=== PATIENT | female | born 1970 | race Caucasian/White ===

== ENCOUNTER 2024-10-10 14:54 | Inpatient (IN) | payer MEDICARE, MEDICAID ==
[~2024-10-10] VITALS: Ht 160 cm; Wt 125.0 kg
[2024-10-10 15:51] LABS: PLATELET COUNT, AUTOMATED 360 10^3/uL (150-450)
[2024-10-10 16:19] LABS: AMPHETAMINES LEVEL URINE NEGATIVE (NEGATIVE)
[2024-10-10 16:20] LABS: BARBITURATES URINE NEGATIVE (NEGATIVE); BENZODIAZEPINES URINE NEGATIVE (NEGATIVE); CANNABINOIDS URINE NEGATIVE (NEGATIVE); COCAINE METABOLITE URINE NEGATIVE (NEGATIVE); METHADONE URINE NEGATIVE (NEGATIVE); OPIATES URINE NEGATIVE (NEGATIVE); PHENCYCLIDINE URINE NEGATIVE (NEGATIVE)
[2024-10-10 16:24] LABS: CK-MB VALUE MASS 1.6 NG/ML (<3.6)
[2024-10-10 16:25] LABS: ETHYL ALCOHOL (ETHANOL) 0.005 % (0.000-0.010)
[2024-10-10 16:26] LABS: CPK CREATINE PHOSPHOKINASE 76 U/L (34-145); MB/CK RELATIVE INDEX 2.10 (< OR =4)
[2024-10-10 16:27] LABS: ALT/SGPT 23 U/L (7.0-40); AST/SGOT 28 U/L (<34); CALCIUM LEVEL 9.1 MG/DL (8.5-10.1); CARBON DIOXIDE LEVEL 28 MMOL/L (20-31); CHLORIDE LEVEL 107 MMOL/L (98-107); CREATININE FOR GFR 0.68 MG/DL (0.55-1.30); GLOMERULAR FILTRATION RATE > 90.0 (>51); POTASSIUM SERUM 4.5 MMOL/L (3.5-5.1); SALICYLATE LEVEL < 3.0 MG/DL (<30); SODIUM LEVEL 144 MMOL/L (136-145)
[2024-10-10 16:48] LABS: HCG, SERUM QUALITATIVE NEGATIVE (NEGATIVE)
[2024-10-10 17:40] LABS: CK-MB VALUE MASS 1.5 NG/ML (<3.6)
[2024-10-10 17:42] LABS: CPK CREATINE PHOSPHOKINASE 77 U/L (34-145); MB/CK RELATIVE INDEX 1.94 (< OR =4)
[2024-10-10] MEDS ORDERED: CLOT1CRE56 TOP (17:55)
[2024-10-10] MEDS ORDERED: ZIPR60CA20 PO (17:55)
[2024-10-10] MEDS ORDERED: OMEP-173 PO (17:55)
[2024-10-10] MEDS ORDERED: NYST1POW3 TOP (17:55)
[2024-10-10] MEDS ORDERED: CARB1TAB20 PO (17:59)
[2024-10-10] MEDS ORDERED: CITA20TA7 PO (17:59)
[2024-10-10] MEDS ORDERED: FAMO40TA3 PO (17:59)
[2024-10-10] MEDS ORDERED: LISI10TA22 PO (17:59)
[2024-10-10] MEDS ORDERED: HOME MED LIST COMPLETE! XX SCH (18:00)
[2024-10-10] MEDS ORDERED: MOM 30 ML SUSPENSION UDC PO PRN (18:30)
[2024-10-10 20:55] VITALS: BP 137/79; TEMP 97.7; O2SAT 98
[2024-10-10] MEDS: MAALOX 30 ML SUSP *UDC PO PRN (22:12)
[2024-10-10] MEDS: ACETAMINOPHEN 325 MG TAB PO PRN (22:13)
[2024-10-11 00:03] VITALS: BP 148/84; TEMP 98.2; O2SAT 100
[2024-10-11] MEDS: traZODone 50 MG TAB PO PRN (00:12)
[2024-10-11 07:02] VITALS: BP 137/83; TEMP 98; O2SAT 96
[2024-10-11 09:09] VITALS: BP 138/84; TEMP 98.6; O2SAT 98
[2024-10-11 10:08] LABS: APPEARANCE, URINE CLEAR (CLEAR); BACTERIA, URINE AUTO NEGATIVE (NEGATIVE); BILIRUBIN, URINE AUTO NEGATIVE (NEGATIVE); BLOOD, URINE BLOOD NEGATIVE (NEGATIVE); GLUCOSE, URINE (UA) AUTO NEGATIVE (NEGATIVE); KETONE, URINE AUTO NEGATIVE (NEGATIVE); LEUKOCYTE ESTERASE, URINE AUTO NEGATIVE (NEGATIVE); NITRITE, URINE AUTO NEGATIVE (NEGATIVE); PROTEIN, URINE AUTO NEGATIVE (NEGATIVE); RBC, URINE AUTO 0 /HPF (0-3); SPECIFIC GRAVITY URINE AUTO 1.023 (1.002-1.035); SQUAMOUS EPITHELIAL CELL UR AU 5 /HPF (0-6); UROBILINOGEN, URINE AUTO 0.2 mg/dL (0.0-2.0); WBC, URINE AUTO 2 /HPF (0-3)
[2024-10-11 10:52] VITALS: BP 138/86
[2024-10-11] MEDS: OMEPRAZOLE 20MG CAP PO SCH (10:52)
[2024-10-11] MEDS ORDERED: PILL CUTTER 1 EACH XX PRN (11:15)
[2024-10-11] MEDS: ZIPRASIDONE 20MG CAPSULE PO ONE (11:29)
[2024-10-11] MEDS: FAMOTIDINE 20 MG TAB PO SCH (11:30)
[2024-10-11] MEDS: NYSTATIN 100,000 UNITS/GM TOPICAL PWD 15 GM TOP SCH (13:58)
[2024-10-11] MEDS: CLOTRIMAZOLE 1% TOPICAL CREAM 30 GM TOP SCH (13:58)
[2024-10-11 15:05] VITALS: BP 127/59; TEMP 97.6; O2SAT 95
== END 2024-10-11 15:32 | disposition home or self-care (01) | DRG 885 ==
LOC: M ED 14:54 → M ED INP 18:29 → M PSY 21:03
PROVIDERS: ADMIT Psychiatry & Neurology Neurology; ATTEND Psychiatry & Neurology Neurology
DX: F29 Unspecified psychosis not due to a substance or known physiological condition (principal); F79 Unspecified intellectual disabilities; E66.01 Morbid (severe) obesity due to excess calories; K21.9 Gastro-esophageal reflux disease without esophagitis; I10 Essential (primary) hypertension; Z96.653 Presence of artificial knee joint, bilateral; Z79.899 Other long term (current) drug therapy; Z88.0 Allergy status to penicillin; Z88.6 Allergy status to analgesic agent